=== PATIENT | female | born 1950 | race Caucasian/White ===

== ENCOUNTER → 2017-09-05 | Day surgery (SDC) | payer OTHER ==
--- NOTE | 2017-09-06 15:57 | PATH ---
Cytology Non-Gynecological Report Patient Name: STEPHANIE FONSECA [facility]. Rec. #: [id number] /Age/Gender: 1950 (Age: 67) / F Account: [id number] Location: [facility] Taken: 09/05/2017 Received: 09/05/2017 Reported: 09/06/2017 Physicians: Beverley Vincent Specimen(s) Received THYROID FNA Clinical History Right thyroid nodule, 1.02 x 0.87 x 0.65 cm Final Diagnosis THYROID, RIGHT, FINE NEEDLE ASPIRATION: UNSATISFACTORY FOR EVALUATION [place] CLASS I: NON-DIAGNOSTIC. RARE FOLLICULAR CELLS, RARE MACROPHAGES, AND SCANT COLLOID PRESENT. Comments The specimen has insufficient follicular cell clusters and/or colloid; and suboptimal for complete cytopathologic evaluation according to [facility] [place] [facility] for Reporting Thyroid FNA. If the nodule has worrisome ultrasound imaging properties, suggest repeat FNA, as warranted. Electronically Signed Nirmala Montalvo M.D. Gross Description Received are eight direct smears, four of which are air-dried and Diff-Quik stained, and four of which are alcohol fixed and Pap stained. Also received is 20 ml of bloody formalin from which one cellblock is prepared.
== END | disposition home or self-care (01) ==
LOC: JRADIR 09:05
PROVIDERS: ATTEND Legal Medicine
PROC: 0G9H3ZX Drainage of Right Thyroid Gland Lobe, Percutaneous Approach, Diagnostic (ICD-10-PCS; principal; 2017-09-05)
DX: E04.1 Nontoxic single thyroid nodule (principal)
CPT/HCPCS: 76942; 88173; 88305-TC

== ENCOUNTER 2022-01-09 10:50 | Inpatient (IN) | payer OTHER ==
[2022-01-09] MEDS ORDERED: ACETAMINOPHEN 1000 MG/100 ML BAG IVPB ONE (11:28)
[2022-01-09] MEDS ORDERED: SODIUM CHLORIDE 0.9% 500 ML INFUS.BAG IV ONE ×2 (11:28→16:04)
[2022-01-09] MEDS ORDERED: CEFEPIME HCL/D5W 2 GM/50 ML BAG IVPB ONE (11:50)
[2022-01-09] MEDS ORDERED: VANCOMYCIN 1 GM in D5W (PRE-DOCKED) 1,000 MG/250 ML IVPB ONE (11:50)
[2022-01-09] MEDS ORDERED: VANCOMYCIN/WATER FOR INJ (PEG) 1,000 MG/200 ML BAG IVPB ONE (11:59)
[2022-01-09] MEDS ORDERED: ACETAMINOPHEN INJECTION 100 ML IVPB ONE (11:59)
[2022-01-09] MEDS ORDERED: CEFEPIME 2 GM/100 ML BAG IVPB ONE (12:55)
[2022-01-09 13:24] LABS: HEMATOCRIT 37.4 % (32.4-45.2); HEMOGLOBIN 12.9 GM/dL (10.7-15.3); MCHC 34.4 g/dl (32.0-36.0); MEAN CELL VOLUME 93.1 fl (80-96); MEAN PLT VOLUME 7.8 fl (7.5-11.1); PLATELET COUNT 176 10^3/uL (134-434); RBC 4.01 M/mm3 (3.60-5.2); WHITE BLOOD COUNT 11.3 K/mm3 (4.0-10.0)
[2022-01-09 13:24] LABS: VENOUS BASE EXCESS 1.4 mmol/L (-2-2); VENOUS O2 SATURATION 24.7 % (70-80); VENOUS PCO2 58.1 mmHg (38-52); VENOUS PH 7.319 (7.310-7.410)
[2022-01-09 13:32] LABS: INR 1.05 (0.83-1.09); PROTHROMBIN TIME (PATIENT) 12.1 SEC (9.7-13.0)
[2022-01-09 15:21] LABS: ANISOCYTOSIS 2+; MACROCYTOSIS 0; OVALOCYTE 1+
[2022-01-09 15:26] LABS: LACTIC ACID 3.3 mmol/L (0.4-2.0)
[2022-01-09 15:36] LABS: EPI CELLS 5 /uL (0-25.1); HYALINE CASTS 2 /uL (0-3.1); URINE APPEARANCE CLOUDY; URINE BACTERIA >9,000 /uL (0-1359); URINE BILIRUBIN NEGATIVE (NEGATIVE); URINE COLOR YELLOW; URINE GLUCOSE (UA) NEGATIVE (NEGATIVE); URINE KETONE NEGATIVE (NEGATIVE); URINE LEUK ESTERASE 2+ (NEGATIVE); URINE NITRITE NEGATIVE (NEGATIVE); URINE PROTEIN 2+ (NEGATIVE); URINE RBC 49 /uL (0-23.9); URINE WBC 505 /uL (0-25.8)
[2022-01-09 16:44] LABS: CHLORIDE 108 mmol/L (98-107); SODIUM 142 mmol/L (136-145)
[2022-01-09 16:48] LABS: ANION GAP 14 MMOL/L (8-16); BLOOD UREA NITROGEN 21.3 mg/dL (7-18); CALCIUM 8.5 mg/dL (8.5-10.1); CO2 21 mmol/L (21-32); GLUCOSE,RANDOM 115 mg/dL (74-106)
[2022-01-09 16:51] LABS: CREATININE 1.7 mg/dL (0.55-1.3); SGOT/AST 104 U/L (15-37); SGPT/ALT 33 U/L (13-61)
[2022-01-09 16:54] LABS: BILIRUBIN,TOTAL 1.3 mg/dL (0.2-1)
[2022-01-09 16:56] LABS: ALK PHOS 61 U/L (45-117)
[2022-01-09 17:03] LABS: LACTIC ACID 8.4 mmol/L (0.4-2.0)
[2022-01-10] MEDS: LACTATED RINGERS SOLUTION 1,000 ML/1,000 ML INFUS.BAG IV SCH (00:09)
[2022-01-10] MEDS ORDERED: ACETAMINOPHEN 325 MG TABLET (FP) PO PRN (00:14)
[2022-01-10 00:47] LABS: CHLORIDE 111 mmol/L (98-107); SODIUM 145 mmol/L (136-145)
[2022-01-10 00:50] LABS: ALBUMIN 2.4 g/dl (3.4-5.0); BLOOD UREA NITROGEN 20.3 mg/dL (7-18); CALCIUM 7.9 mg/dL (8.5-10.1); CO2 24 mmol/L (21-32); GLUCOSE,RANDOM 79 mg/dL (74-106)
[2022-01-10 00:54] LABS: CREATININE 1.3 mg/dL (0.55-1.3); SGOT/AST 107 U/L (15-37); SGPT/ALT 31 U/L (13-61)
[2022-01-10 00:56] LABS: ALK PHOS 55 U/L (45-117); BILIRUBIN,TOTAL 0.8 mg/dL (0.2-1); TOT PROT 5.1 g/dl (6.4-8.2)
[2022-01-10 01:08] LABS: ANION GAP 10 MMOL/L (8-16)
[2022-01-10] MEDS: KCL 10 MEQ IVPB 10 MEQ/100 ML INFUS.BAG IVPB SCH ×3 (03:10→06:01)
[2022-01-10] MEDS ORDERED: ASPIRIN 325 MG TABLET PO ONE (03:24)
[2022-01-10] MEDS ORDERED: GLYCERIN 1 RECTAL SUPPOSITORY, ADULT RC ONE (06:00)
[2022-01-10] MEDS: HEPARIN NA (PORCINE) 5,000 UNITS/ML 1ML VIAL SQ SCH ×3 (06:01→21:18)
[2022-01-10 07:43] LABS: HEMATOCRIT 31.9 % (32.4-45.2); MCH 31.7 pg (25.7-33.7); MCHC 34.5 g/dl (32.0-36.0); MEAN CELL VOLUME 92.1 fl (80-96); MEAN PLT VOLUME 7.9 fl (7.5-11.1); PLATELET COUNT 121 10^3/uL (134-434); RBC 3.47 M/mm3 (3.60-5.2); RDW 13.4 % (11.6-15.6); WHITE BLOOD COUNT 24.2 K/mm3 (4.0-10.0)
[2022-01-10 07:55] LABS: CHLORIDE 111 mmol/L (98-107); SODIUM 144 mmol/L (136-145)
[2022-01-10 07:57] LABS: ANION GAP 8 MMOL/L (8-16); BLOOD UREA NITROGEN 23.4 mg/dL (7-18); CALCIUM 7.8 mg/dL (8.5-10.1); CO2 25 mmol/L (21-32); GLUCOSE,RANDOM 70 mg/dL (74-106); MAGNESIUM 1.7 mg/dL (1.8-2.4)
[2022-01-10 08:01] LABS: CREATININE 1.3 mg/dL (0.55-1.3); PHOSPHOROUS 3.9 mg/dL (2.5-4.9); SGOT/AST 120 U/L (15-37); SGPT/ALT 36 U/L (13-61)
[2022-01-10 08:03] LABS: BILIRUBIN,TOTAL 0.9 mg/dL (0.2-1)
[2022-01-10 08:04] LABS: ALK PHOS 56 U/L (45-117)
[2022-01-10 08:17] LABS: ALBUMIN 2.3 g/dl (3.4-5.0)
[2022-01-10 10:15] LABS: ANISOCYTOSIS 0; MACROCYTOSIS 0
[2022-01-10] MEDS: CEFTRIAXONE 1 GM in DEXTROSE 5%-WATER - 50 ML IVPB SCH (11:28)
[2022-01-10] MEDS ORDERED: VANCOMYCIN 1 GM/200 ML PREMIX BAG IVPB SCH (12:00)
[2022-01-10] MEDS ORDERED: CEFEPIME 1 GM in DEXTROSE 5%-WATER 100 ML IVPB SCH (12:00)
[2022-01-10 12:51] LABS: LACTIC ACID 2.4 mmol/L (0.4-2.0)
[2022-01-10] MEDS ORDERED: MAGNESIUM SULFATE IN WATER 2 GM/50 ML IVPB IVPB ONE (13:09)
[2022-01-10] MEDS: ASPIRIN 81 MG CHEWABLE TABLETS PO SCH (14:58)
[2022-01-10] MEDS: ESCITALOPRAM OXALATE 10 MG TABLET PO SCH (14:58)
[2022-01-10] MEDS: DEXTROSE 5%-LACTATED RINGERS 1,000 ML IV SCH (18:28)
[2022-01-10] MEDS: LEVOTHYROXINE NA 50 MCG TABLET (FP) PO SCH (19:00)
[2022-01-10] MEDS: risperiDONE 0.5 MG TABLET PO SCH (21:18)
[2022-01-10] MEDS: ROSUVASTATIN CA 20 MG TABLET PO SCH (21:18)
[2022-01-11] MEDS: HEPARIN NA (PORCINE) 5,000 UNITS/ML 1ML VIAL SQ SCH ×3 (06:13→21:44)
[2022-01-11] MEDS ORDERED: LEVOTHYROXINE NA 75 MCG TABLET (FP) PO SCH (07:00)
[2022-01-11] MEDS: risperiDONE 0.5 MG TABLET PO SCH ×3 (09:26→22:02)
[2022-01-11] MEDS: ESCITALOPRAM OXALATE 10 MG TABLET PO SCH (09:26)
[2022-01-11] MEDS: ASPIRIN 81 MG CHEWABLE TABLETS PO SCH (09:26)
[2022-01-11] MEDS: CEFTRIAXONE 1 GM in DEXTROSE 5%-WATER - 50 ML IVPB SCH (09:26)
[2022-01-11 09:37] LABS: HEMATOCRIT 27.1 % (32.4-45.2); HEMOGLOBIN 9.5 GM/dL (10.7-15.3); MCH 32.3 pg (25.7-33.7); MCHC 35.3 g/dl (32.0-36.0); MEAN CELL VOLUME 91.5 fl (80-96); MEAN PLT VOLUME 8.3 fl (7.5-11.1); PLATELET COUNT 92 10^3/uL (134-434); RBC 2.96 M/mm3 (3.60-5.2); RDW 13.3 % (11.6-15.6); WHITE BLOOD COUNT 14.1 K/mm3 (4.0-10.0)
[2022-01-11 10:17] LABS: BLOOD UREA NITROGEN 30.1 mg/dL (7-18)
[2022-01-11 10:19] LABS: ALBUMIN 2.1 g/dl (3.4-5.0); PHOSPHOROUS 2.5 mg/dL (2.5-4.9)
[2022-01-11 10:20] LABS: BILIRUBIN,TOTAL 0.5 mg/dL (0.2-1); TOT PROT 4.5 g/dl (6.4-8.2)
[2022-01-11 10:22] LABS: CALCIUM 7.9 mg/dL (8.5-10.1)
[2022-01-11 10:23] LABS: MAGNESIUM 2.7 mg/dL (1.8-2.4)
[2022-01-11 10:27] LABS: CREATININE 1.3 mg/dL (0.55-1.3)
[2022-01-11] MEDS ORDERED: VANCOMYCIN 1 GM/200 ML PREMIX BAG IVPB SCH (12:00)
[2022-01-11] MEDS: DEXTROSE 5%-LACTATED RINGERS 1,000 ML IV SCH (13:57)
[2022-01-11] MEDS ORDERED: TAMSULOSIN HCL 0.4 MG CAP PO ONE (14:36)
[2022-01-11] MEDS ORDERED: KCL 10 MEQ IVPB 10 MEQ/100 ML INFUS.BAG IVPB SCH (19:00)
[2022-01-11] MEDS: POTASSIUM CHLORIDE ORAL LIQUID 20 MEQ/15 ML PO SCH (19:04)
[2022-01-11] MEDS: ROSUVASTATIN CA 20 MG TABLET PO SCH ×2 (21:44→22:02)
[2022-01-11] MEDS ORDERED: ACETAMINOPHEN 1000 MG/100 ML BAG IVPB ONE (23:41)
[2022-01-12] MEDS: POTASSIUM CHLORIDE ORAL LIQUID 20 MEQ/15 ML PO SCH ×2 (00:30→06:11)
[2022-01-12] MEDS: HEPARIN NA (PORCINE) 5,000 UNITS/ML 1ML VIAL SQ SCH (06:10)
[2022-01-12] MEDS: LEVOTHYROXINE NA 50 MCG TABLET (FP) PO SCH (06:11)
[2022-01-12 08:20] LABS: HEMATOCRIT 24.8 % (32.4-45.2); HEMOGLOBIN 8.7 GM/dL (10.7-15.3); MCH 32.3 pg (25.7-33.7); MCHC 35.1 g/dl (32.0-36.0); MEAN CELL VOLUME 91.9 fl (80-96); MEAN PLT VOLUME 8.3 fl (7.5-11.1); PLATELET COUNT 81 10^3/uL (134-434); RDW 13.4 % (11.6-15.6); WHITE BLOOD COUNT 11.6 K/mm3 (4.0-10.0)
[2022-01-12] MEDS ORDERED: TAMSULOSIN HCL 0.4 MG CAP PO SCH (08:30)
[2022-01-12 08:42] LABS: CALCIUM 7.8 mg/dL (8.5-10.1)
[2022-01-12 08:47] LABS: BILIRUBIN,TOTAL 0.7 mg/dL (0.2-1); TOT PROT 4.5 g/dl (6.4-8.2)
[2022-01-12 08:52] LABS: CREATININE 1.4 mg/dL (0.55-1.3)
[2022-01-12] MEDS: CEFTRIAXONE 1 GM in DEXTROSE 5%-WATER - 50 ML IVPB SCH (09:50)
[2022-01-12] MEDS: ESCITALOPRAM OXALATE 10 MG TABLET PO SCH (09:54)
[2022-01-12] MEDS: ASPIRIN 81 MG CHEWABLE TABLETS PO SCH (09:54)
[2022-01-12] MEDS: risperiDONE 0.5 MG TABLET PO SCH ×2 (09:54→21:12)
[2022-01-12] MEDS: DEXTROSE 5%-LACTATED RINGERS 1,000 ML IV SCH ×3 (11:51→21:12)
[2022-01-12] MEDS ORDERED: LIDOCAINE HCL/PF 2% SDV 5ML VIAL ONE (16:37)
[2022-01-12] MEDS ORDERED: DEXAMETHASONE SOD PHOSPHATE 4 MG/1 ML VIAL ONE (16:37)
[2022-01-12] MEDS ORDERED: PROPOFOL 20 ML ONE (16:37)
[2022-01-12] MEDS ORDERED: ceFAZolin SODIUM 1 GM VIAL IVPB ONE (16:52)
[2022-01-12] MEDS ORDERED: ACETAMINOPHEN 325 MG TABLET (FP) PO PRN (17:43)
[2022-01-12] MEDS ORDERED: LACTATED RINGERS SOLUTION 1,000 ML IV SCH (18:00)
[2022-01-12] MEDS: LACTATED RINGERS SOLUTION 1,000 ML/1,000 ML INFUS.BAG IV SCH (21:10)
[2022-01-12] MEDS: ROSUVASTATIN CA 20 MG TABLET PO SCH (21:12)
[2022-01-13] MEDS: LEVOTHYROXINE NA 75 MCG TABLET (FP) PO SCH (06:00)
[2022-01-13] MEDS: TAMSULOSIN HCL 0.4 MG CAP PO SCH (08:03)
[2022-01-13 08:04] LABS: HEMATOCRIT 24.4 % (32.4-45.2); HEMOGLOBIN 8.6 GM/dL (10.7-15.3); MCH 32.7 pg (25.7-33.7); MCHC 35.3 g/dl (32.0-36.0); MEAN CELL VOLUME 92.6 fl (80-96); MEAN PLT VOLUME 8.8 fl (7.5-11.1); PLATELET COUNT 80 10^3/uL (134-434); RBC 2.64 M/mm3 (3.60-5.2); RDW 13.5 % (11.6-15.6); WHITE BLOOD COUNT 10.6 K/mm3 (4.0-10.0)
[2022-01-13 08:32] LABS: CALCIUM 7.8 mg/dL (8.5-10.1)
[2022-01-13 08:33] LABS: ALBUMIN 1.8 g/dl (3.4-5.0); BLOOD UREA NITROGEN 20.4 mg/dL (7-18)
[2022-01-13 08:38] LABS: BILIRUBIN,TOTAL 0.5 mg/dL (0.2-1)
[2022-01-13 08:39] LABS: CREATININE 1.2 mg/dL (0.55-1.3)
[2022-01-13 08:40] LABS: TOT PROT 4.5 g/dl (6.4-8.2)
[2022-01-13] MEDS: CEFTRIAXONE 1 GM in DEXTROSE 5%-WATER - 50 ML IVPB SCH (09:41)
[2022-01-13] MEDS: risperiDONE 0.5 MG TABLET PO SCH ×2 (09:41→21:46)
[2022-01-13] MEDS: ASPIRIN 81 MG CHEWABLE TABLETS PO SCH (09:42)
[2022-01-13] MEDS: ESCITALOPRAM OXALATE 10 MG TABLET PO SCH (09:42)
[2022-01-13] MEDS: DEXTROSE 5%-LACTATED RINGERS 1,000 ML IV SCH ×2 (13:32→17:50)
[2022-01-13] MEDS: ROSUVASTATIN CA 20 MG TABLET PO SCH (21:46)
[2022-01-14] MEDS: LEVOTHYROXINE NA 50 MCG TABLET (FP) PO SCH (06:41)
[2022-01-14] MEDS: DEXTROSE 5%-LACTATED RINGERS 1,000 ML IV SCH ×2 (06:42→21:39)
[2022-01-14] MEDS: TAMSULOSIN HCL 0.4 MG CAP PO SCH (09:53)
[2022-01-14] MEDS: ESCITALOPRAM OXALATE 10 MG TABLET PO SCH (09:54)
[2022-01-14] MEDS: amLODIPine BESYLATE 2.5 MG TABLET (FP) PO SCH (09:54)
[2022-01-14] MEDS: CEFTRIAXONE 1 GM in DEXTROSE 5%-WATER - 50 ML IVPB SCH (09:54)
[2022-01-14] MEDS: risperiDONE 0.5 MG TABLET PO SCH ×2 (09:54→21:39)
[2022-01-14] MEDS: ASPIRIN 81 MG CHEWABLE TABLETS PO SCH (09:55)
[2022-01-14] MEDS: ROSUVASTATIN CA 20 MG TABLET PO SCH (21:39)
[2022-01-14 21:42] VITALS: BMI 17.8
[2022-01-15] MEDS: LEVOTHYROXINE NA 50 MCG TABLET (FP) PO SCH (06:15)
[2022-01-15] MEDS: TAMSULOSIN HCL 0.4 MG CAP PO SCH (09:09)
[2022-01-15] MEDS: CEFTRIAXONE 1 GM in DEXTROSE 5%-WATER - 50 ML IVPB SCH (09:09)
[2022-01-15] MEDS: ASPIRIN 81 MG CHEWABLE TABLETS PO SCH (09:10)
[2022-01-15] MEDS: risperiDONE 0.5 MG TABLET PO SCH ×2 (09:10→21:48)
[2022-01-15] MEDS: ESCITALOPRAM OXALATE 10 MG TABLET PO SCH (09:11)
[2022-01-15] MEDS: amLODIPine BESYLATE 2.5 MG TABLET (FP) PO SCH (09:11)
[2022-01-15 10:19] LABS: HEMATOCRIT 25.7 % (32.4-45.2); MCH 31.9 pg (25.7-33.7); MEAN CELL VOLUME 91.2 fl (80-96); MEAN PLT VOLUME 8.3 fl (7.5-11.1); PLATELET COUNT 153 10^3/uL (134-434); RBC 2.82 M/mm3 (3.60-5.2); RDW 13.1 % (11.6-15.6); WHITE BLOOD COUNT 9.6 K/mm3 (4.0-10.0)
[2022-01-15 10:27] LABS: CALCIUM 7.8 mg/dL (8.5-10.1)
[2022-01-15 10:28] LABS: BLOOD UREA NITROGEN 10.7 mg/dL (7-18)
[2022-01-15 10:31] LABS: CREATININE 0.7 mg/dL (0.55-1.3)
[2022-01-15] MEDS: DEXTROSE 5%-LACTATED RINGERS 1,000 ML IV SCH (19:25)
[2022-01-15] MEDS: ROSUVASTATIN CA 20 MG TABLET PO SCH (21:48)
[2022-01-16] MEDS: LEVOTHYROXINE NA 75 MCG TABLET (FP) PO SCH (06:05)
[2022-01-16 08:17] LABS: CHLORIDE 104 mmol/L (98-107); SODIUM 143 mmol/L (136-145)
[2022-01-16 08:18] LABS: HEMATOCRIT 25.3 % (32.4-45.2); MCH 32.7 pg (25.7-33.7); MCHC 35.7 g/dl (32.0-36.0); MEAN CELL VOLUME 91.4 fl (80-96); PLATELET COUNT 186 10^3/uL (134-434); RBC 2.77 M/mm3 (3.60-5.2); RDW 13.5 % (11.6-15.6); WHITE BLOOD COUNT 10.6 K/mm3 (4.0-10.0)
[2022-01-16 08:31] LABS: CALCIUM 7.9 mg/dL (8.5-10.1)
[2022-01-16 08:32] LABS: BLOOD UREA NITROGEN 8.4 mg/dL (7-18); CO2 31 mmol/L (21-32)
[2022-01-16 08:34] LABS: CREATININE 0.7 mg/dL (0.55-1.3)
[2022-01-16 08:35] LABS: ANION GAP 8 MMOL/L (8-16); GLUCOSE,RANDOM 112 mg/dL (74-106)
[2022-01-16] MEDS: risperiDONE 0.5 MG TABLET PO SCH ×2 (09:09→21:17)
[2022-01-16] MEDS: amLODIPine BESYLATE 2.5 MG TABLET (FP) PO SCH (09:09)
[2022-01-16] MEDS: TAMSULOSIN HCL 0.4 MG CAP PO SCH (09:09)
[2022-01-16] MEDS: ESCITALOPRAM OXALATE 10 MG TABLET PO SCH (09:10)
[2022-01-16] MEDS: ASPIRIN 81 MG CHEWABLE TABLETS PO SCH (09:10)
[2022-01-16] MEDS: CEFTRIAXONE 1 GM in DEXTROSE 5%-WATER - 50 ML IVPB SCH (09:10)
[2022-01-16] MEDS: D5-1/2NS+10 MEQ KCL - 10 MEQ/1,000 ML INFUS.BAG IV SCH (09:35)
[2022-01-16] MEDS: KCL 10 MEQ IVPB 10 MEQ/100 ML INFUS.BAG IVPB SCH ×4 (09:53→23:17)
[2022-01-16 10:11] LABS: MAGNESIUM 1.7 mg/dL (1.8-2.4)
[2022-01-16 10:14] LABS: PHOSPHOROUS 2.8 mg/dL (2.5-4.9)
[2022-01-16] MEDS ORDERED: MAGNESIUM SULF 50% (8.12 MEQ/2 ML-1 GM VIAL) IVPB ONE (10:45)
[2022-01-16] MEDS: ENOXAPARIN NA (PORCINE) 40 MG/0.4 ML DISP.SYRIN SQ SCH (11:56)
[2022-01-16] MEDS: ROSUVASTATIN CA 20 MG TABLET PO SCH (21:18)
[2022-01-16 21:37] LABS: BLOOD UREA NITROGEN 11.5 mg/dL (7-18); CALCIUM 7.9 mg/dL (8.5-10.1); MAGNESIUM 1.9 mg/dL (1.8-2.4)
[2022-01-16 21:41] LABS: CREATININE 0.8 mg/dL (0.55-1.3)
[2022-01-16] MEDS ORDERED: POTASSIUM CHLORIDE ORAL LIQUID 20 MEQ/15 ML PO ONE (21:50)
[2022-01-17] MEDS: D5-1/2NS+10 MEQ KCL - 10 MEQ/1,000 ML INFUS.BAG IV SCH (02:24)
[2022-01-17] MEDS: LEVOTHYROXINE NA 50 MCG TABLET (FP) PO SCH (06:51)
[2022-01-17] MEDS ORDERED: POTASSIUM CHLORIDE TABS 20 MEQ TABLET.ER (FP) PO ONE (07:23)
[2022-01-17 09:07] LABS: HEMATOCRIT 22.5 % (32.4-45.2); HEMOGLOBIN 7.9 GM/dL (10.7-15.3); MCH 32.2 pg (25.7-33.7); MCHC 35.1 g/dl (32.0-36.0); MEAN CELL VOLUME 91.9 fl (80-96); PLATELET COUNT 236 10^3/uL (134-434); RBC 2.44 M/mm3 (3.60-5.2); RDW 13.3 % (11.6-15.6)
[2022-01-17 09:21] LABS: CALCIUM 7.9 mg/dL (8.5-10.1)
[2022-01-17 09:22] LABS: BLOOD UREA NITROGEN 11.3 mg/dL (7-18); MAGNESIUM 1.8 mg/dL (1.8-2.4)
[2022-01-17 09:25] LABS: CREATININE 0.7 mg/dL (0.55-1.3); PHOSPHOROUS 2.2 mg/dL (2.5-4.9)
[2022-01-17] MEDS: TAMSULOSIN HCL 0.4 MG CAP PO SCH (09:25)
[2022-01-17] MEDS: ENOXAPARIN NA (PORCINE) 40 MG/0.4 ML DISP.SYRIN SQ SCH (09:25)
[2022-01-17] MEDS: CEFTRIAXONE 1 GM in DEXTROSE 5%-WATER - 50 ML IVPB SCH (09:28)
[2022-01-17] MEDS: POTASSIUM CHLORIDE ORAL LIQUID 20 MEQ/15 ML PO SCH ×2 (09:28→20:59)
[2022-01-17] MEDS: ESCITALOPRAM OXALATE 10 MG TABLET PO SCH (09:29)
[2022-01-17] MEDS: risperiDONE 0.5 MG TABLET PO SCH ×2 (09:29→21:00)
[2022-01-17] MEDS: amLODIPine BESYLATE 2.5 MG TABLET (FP) PO SCH (09:29)
[2022-01-17] MEDS: ASPIRIN 81 MG CHEWABLE TABLETS PO SCH (09:29)
[2022-01-17] MEDS: ROSUVASTATIN CA 20 MG TABLET PO SCH (21:00)
[2022-01-18] MEDS: LEVOTHYROXINE NA 75 MCG TABLET (FP) PO SCH (06:01)
[2022-01-18 07:41] LABS: BASO % 0.6 % (0-2.0); EOS % 0.8 % (0-4.5); HEMATOCRIT 25.1 % (32.4-45.2); HEMOGLOBIN 8.6 GM/dL (10.7-15.3); LYMPH % 6.1 % (8-40); MCH 31.6 pg (25.7-33.7); MCHC 34.4 g/dl (32.0-36.0); MEAN CELL VOLUME 91.9 fl (80-96); MEAN PLT VOLUME 7.5 fl (7.5-11.1); MONO % 6.4 % (3.8-10.2); NEUT % 86.1 % (42.8-82.8); PLATELET COUNT 313 10^3/uL (134-434); RBC 2.73 M/mm3 (3.60-5.2); RDW 13.7 % (11.6-15.6); WHITE BLOOD COUNT 9.9 K/mm3 (4.0-10.0)
[2022-01-18 08:02] LABS: ALBUMIN 1.8 g/dl (3.4-5.0); BLOOD UREA NITROGEN 10.7 mg/dL (7-18)
[2022-01-18 08:05] LABS: CREATININE 0.7 mg/dL (0.55-1.3)
[2022-01-18 08:06] LABS: TOT PROT 4.7 g/dl (6.4-8.2)
[2022-01-18 08:07] LABS: BILIRUBIN,TOTAL 0.5 mg/dL (0.2-1)
[2022-01-18] MEDS: TAMSULOSIN HCL 0.4 MG CAP PO SCH (08:38)
[2022-01-18] MEDS: risperiDONE 0.5 MG TABLET PO SCH ×2 (09:49→21:01)
[2022-01-18] MEDS: ENOXAPARIN NA (PORCINE) 40 MG/0.4 ML DISP.SYRIN SQ SCH (09:49)
[2022-01-18] MEDS: amLODIPine BESYLATE 2.5 MG TABLET (FP) PO SCH (09:49)
[2022-01-18] MEDS: CEFTRIAXONE 1 GM in DEXTROSE 5%-WATER - 50 ML IVPB SCH (09:49)
[2022-01-18] MEDS: ESCITALOPRAM OXALATE 10 MG TABLET PO SCH (09:49)
[2022-01-18] MEDS: ASPIRIN 81 MG CHEWABLE TABLETS PO SCH (09:50)
[2022-01-18] MEDS: D5-1/2NS+10 MEQ KCL - 10 MEQ/1,000 ML INFUS.BAG IV SCH (13:06)
[2022-01-18] MEDS: ROSUVASTATIN CA 20 MG TABLET PO SCH (21:01)
[2022-01-19] MEDS: LEVOTHYROXINE NA 50 MCG TABLET (FP) PO SCH (06:13)
[2022-01-19] MEDS: ESCITALOPRAM OXALATE 10 MG TABLET PO SCH (09:45)
[2022-01-19] MEDS: CEFTRIAXONE 1 GM in DEXTROSE 5%-WATER - 50 ML IVPB SCH (09:45)
[2022-01-19] MEDS: amLODIPine BESYLATE 2.5 MG TABLET (FP) PO SCH (09:45)
[2022-01-19] MEDS: ASPIRIN 81 MG CHEWABLE TABLETS PO SCH (09:45)
[2022-01-19] MEDS: TAMSULOSIN HCL 0.4 MG CAP PO SCH (09:45)
[2022-01-19] MEDS: risperiDONE 0.5 MG TABLET PO SCH (09:45)
[2022-01-19] MEDS: ENOXAPARIN NA (PORCINE) 40 MG/0.4 ML DISP.SYRIN SQ SCH (10:13)
[2022-01-19 12:09] LABS: CA OXALATE MONOHYDR. 75 % (.); SIZE 4x4 mm (.); WEIGHT 31 mg (.)
[2022-01-19 12:51] VITALS: BP 109/60; PULSE 77; RESP 18; TEMP 97.7
== END 2022-01-19 13:55 | DRG 853 ==
LOC: JER 10:50 → JERBED 16:44 → J4W 01-10 02:10 → J4S 01-12 00:37
PROVIDERS: ADMIT Internal Medicine; ATTEND Internal Medicine
PROC: 0T768DZ Dilation of Right Ureter with Intraluminal Device, Via Natural or Artificial Opening Endoscopic (ICD-10-PCS; principal; 2022-01-12 16:00)
PROC: 0TC68ZZ Extirpation of Matter from Right Ureter, Via Natural or Artificial Opening Endoscopic (ICD-10-PCS; 2022-01-12 16:00)
PROC: BT1DZZZ Fluoroscopy of Right Kidney, Ureter and Bladder (ICD-10-PCS; 2022-01-12 16:00)
DX: A41.9 Sepsis, unspecified organism (principal); G93.41 Metabolic encephalopathy; I21.A1 Myocardial infarction type 2; N39.0 Urinary tract infection, site not specified; E87.2 Acidosis; M62.82 Rhabdomyolysis; N17.9 Acute kidney failure, unspecified; N13.6 Pyonephrosis; R64 Cachexia; Z68.1 Body mass index [BMI] 19.9 or less, adult; F02.80 Dementia in other diseases classified elsewhere, unspecified severity, without behavioral disturbance, psychotic disturbance, mood disturbance, and anxiety; G31.09 Other frontotemporal neurocognitive disorder; I10 Essential (primary) hypertension; E78.5 Hyperlipidemia, unspecified; E03.9 Hypothyroidism, unspecified; E87.6 Hypokalemia; D64.9 Anemia, unspecified; R74.01 Elevation of levels of liver transaminase levels; E86.9 Volume depletion, unspecified; K59.00 Constipation, unspecified
CPT/HCPCS: 0241U-QW; 36415; 70450-TC; 71045-TC-FY; 72125-TC; 72170-TC-FY; 73502-TC-LT-FY; 73552-TC-LT-FY; 74176-TC; 76000-TC-FY; 76700-TC; 76775-TC; 76856-TC; 80048; 80053; 81003; 82272; 82360; 82550; 82553; 82728; 82803; 82962; 83540; 83550; 83605; 83735; 84100; 84443; 84484; 85025; 85027; 85610; 85730; 86705; 86707; 86708; 87040; 87086; 87186; 87350; 87517; 87522; 88300-TC; 93005; 93010; 93306-TC; 94760; 97116-GP; 97162-GP; 99285-25; C2617; J1644